=== PATIENT | female | born 1975 | race Caucasian/White ===

== ENCOUNTER → 2016-07-24 | Outpatient (CLI) | payer MEDICARE, MEDICAID ==
[~2016-07-24] MED LIST: CLON2TAB3 PO; CMBV14.7IN IH; CYCL10TA9 PO; DRON5CAP PO; ESTR0.5T PO; ESTR1PAT31 TD; FAMO40TA6 PO; FESO4TAB2 PO; HYDR1TAB8 PO; HYDR1TAB86 PO; IBUP-1773 PO; INSASP10V SC; INSU100V6 SC; LEVO100T46 PO; LEVO75TA57 PO; LISI10TA2 PO; LOVA40TA2 PO; MAG OXIDE PO; METO10TA3 PO; MORP30CP12 PO; MULT-501 PO; NF-OLOP5ML OU; ONDA-41 PO; ONDA4VIA IM; OXYC15TA79 PO; POLY17PO23 PO; PRM50SU RC; PROMETHAZINE 50 MG/ML IM; PROMETHAZINE GEL TOP; SLMFT1E INH; VIVELLE DOT 0.1 MG TD; ZINC PO; [UNRECOGNIZED DRUG - CODE] RC; [UNRECOGNIZED DRUG - OTHER] TOP
--- NOTE | 2016-07-25 13:47 | Diagnostic Imaging Report ---
Bilateral screening mammogram. The current study was also evaluated with a Computer Aided Detection (CAD) system. INDICATION: Screening. No current complaints stated on the questionnaire. COMPARISON: 07/21/15. FINDINGS: The breasts are composed of scattered fibroglandular densities. There are scattered benign-appearing calcifications. Allowing for technique and positional differences, no suspicious change is seen. IMPRESSION: No significant change. ACR BI-RADS Category 2: Benign findings. Result letter will be mailed to the patient. Note: At least 10% of breast cancer is not imaged by mammography. Dictated by: Dictated on workstation # [id number]
== END ==
LOC: RAD 13:44
PROVIDERS: ATTEND Obstetrics & Gynecology
DX: Z12.31 Encounter for screening mammogram for malignant neoplasm of breast (principal)
CPT/HCPCS: 77067

== ENCOUNTER → 2017-08-20 | Outpatient (CLI) | payer MEDICARE, MEDICAID ==
--- NOTE | 2017-08-21 09:58 | Diagnostic Imaging Report ---
INDICATION: Routine screening. COMPARISON: 07/24/2016 and 07/21/2015. TECHNIQUE: 2D and 3D bilateral screening mammography was performed with CAD. FINDINGS: Scattered fibroglandular densities are identified bilaterally. There are benign calcifications bilaterally. No mass or malignant appearing microcalcifications are seen. A port in the right chest is noted. The axillae are otherwise unremarkable. IMPRESSION: No mammographic features suspicious for malignancy are identified. ACR BI-RADS Category 2: Benign findings. Result letter will be mailed to the patient. Note: At least 10% of breast cancer is not imaged by mammography. Dictated by: Dictated on workstation # [id number]
== END ==
LOC: RAD 12:55
PROVIDERS: ATTEND Obstetrics & Gynecology
DX: Z12.31 Encounter for screening mammogram for malignant neoplasm of breast (principal)
CPT/HCPCS: 77067

== ENCOUNTER → 2018-09-30 | Outpatient (CLI) | payer MEDICARE, MEDICAID ==
--- NOTE | 2018-09-30 10:38 | Diagnostic Imaging Report ---
INDICATION: Screening for osteoporosis. COMPARISON: None FINDINGS: The bone mineral density of the hips was measured. The patient has had a prior fusion of the lumbar spine. The total T score for the left hip is 2.1 and for the right hip 1.5. The T score for each femoral neck is 1.2. All of these values are within normal limits. AP Spine L1-L4: [BMD (g/cm2): N/A] [T-Score: N/A] [Z-Score: N/A] [BMD Previous: N/A] [BMD % Change: N/A] LT Hip Neck: [BMD (g/cm2): 1.207] [T-Score: 1.2] [Z-Score: 1.5] LT Hip Total: [BMD (g/cm2):1.270] [T-Score:2.1] [Z-Score: 2.1] [BMD Previous: N/A] [BMD % Change: N/A] RT Hip Neck: [BMD (g/cm2):1.210] [T-Score:1.2] [Z-Score:1.5] RT Hip Total: [BMD (g/cm2):1.193] [T-score:1.5] [Z-Score:1.4] [BMD Previous:N/A] [BMD % Change:N/A] *Indicates significant change from prior examination based on 95% confidence level. World Health Organization criteria for BMD interpretation classify patients as Normal (T-score at or above -1.0), Osteopenic (T-score between -1.0 and -2.5) or Osteoporotic (T-score at or below -2.5). LIMITATIONS AND MODIFICATION: None. FRACTURE RISK (FRAX SCORE): The ten year probability of (%): Major Osteoporotic Fracture: [N/A] Hip Fracture: [N/A] IMPRESSION: 1. The bone mineral density of the hips and femoral necks is within normal limits. 2. The bone density spine could not be determined due to the patient's prior lumbar fusion. 3. See below National Osteoporosis Foundation guidelines on when to potentially initiate pharmacologic therapy. Based on the National Osteoporosis Foundation Guidelines, pharmacologic treatment should be initiated in any of the following, unless clinical conditions suggest otherwise: * Any patient with prior fragility fracture of the hip or vertebrae. A spine fracture indicates 5X risk for subsequent spine fracture and 2X risk for subsequent hip fracture. * Osteoporosis (T-score <-2.5). * Postmenopausal women and men age 50 and older with low bone mass/osteopenia (T-score between -1.0 and -2.5) by DXA and 10-year major osteoporotic fracture greater than 20% or a 10-year probability of hip fracture greater than 3%. These fracture risks are supplied above in the FRAX score, if applicable. * Clinician judgement and/or patient preferences may indicate treatment for people with 10-year fracture probabilities above or below these levels. Dictated by: Dictated on workstation # [id number]
== END ==
LOC: RAD 09:40
PROVIDERS: ATTEND Nurse Practitioner Family
DX: Z13.820 Encounter for screening for osteoporosis (principal); Z12.39 Encounter for other screening for malignant neoplasm of breast; E89.40 Asymptomatic postprocedural ovarian failure
CPT/HCPCS: 77080

== ENCOUNTER 2018-12-19 13:02 | Outpatient (RCR) | payer MEDICARE, MEDICAID ==
[2018-12-12 14:05] VITALS: BP 132/86
[2018-12-12] MEDS: FERRIC CARBOXYMALTOSE INJ 750 MG in NS (IVPB) 250 ML IV SCH (14:33)
[~2018-12-19] VITALS: Ht 162.6 cm; Wt 80.9 kg
[2018-12-19 12:57] VITALS: BP 115/89
[~2018-12-19 13:02] MED LIST changes: +ONDANSETRON 4 MG/2 ML (SDV) Z0FRAN IV PRN
[2018-12-19] MEDS: FERRIC CARBOXYMALTOSE INJ 750 MG in NS (IVPB) 250 ML IV SCH (13:10)
[2018-12-19] MEDS ORDERED: HEParin (CENTRAL IV FLUSH) 500 UNIT/5 ML SYR IV ONE (13:15)
[2018-12-19] MEDS ORDERED: CATHETER FLUSH 10 ML SYR IV PRN (13:15)
== END 2018-12-19 13:40 | disposition home or self-care (01) ==
LOC: SDC 13:02
PROVIDERS: ATTEND Nurse Practitioner Family
DX: D50.9 Iron deficiency anemia, unspecified (principal); K31.84 Gastroparesis; R11.2 Nausea with vomiting, unspecified
CPT/HCPCS: 96365

== ENCOUNTER → 2019-11-05 | Outpatient (CLI) | payer MEDICARE, MEDICAID ==
[~2019-11-05] MED LIST changes: -ONDANSETRON 4 MG/2 ML (SDV) Z0FRAN IV PRN
--- NOTE | 2019-11-06 12:39 | Diagnostic Imaging Report ---
INDICATION: Routine screening. Comparison is made with prior mammogram 09/30/2018 and 08/20/2017. 2-D and 3-D bilateral screening mammography was performed with CAD. Scattered fibroglandular densities are identified bilaterally. There are benign calcifications in both breasts. No mass or malignant appearing microcalcifications are seen. Axillae are unremarkable. IMPRESSION: BI-RADS Category 2 No mammographic features suspicious for malignancy are identified. ACR BI-RADS Category 2: Benign findings. Result letter will be mailed to the patient. Note: At least 10% of breast cancer is not imaged by mammography. Dictated by: Dictated on workstation # [id number]
== END ==
LOC: RAD 15:00
PROVIDERS: ATTEND Nurse Practitioner Family
DX: Z12.31 Encounter for screening mammogram for malignant neoplasm of breast (principal)
CPT/HCPCS: 77063; 77067

== ENCOUNTER 2021-06-20 12:56 | Outpatient (RCR) | payer MEDICARE, MEDICAID ==
[2021-06-13] MEDS: FERRIC CARBOXYMALTOSE INJ 750 MG in NS (IVPB) 250 ML IV SCH (13:19)
[2021-06-13 13:40] VITALS: BP 143/89
[2021-06-20] MEDS: FERRIC CARBOXYMALTOSE INJ 750 MG in NS (IVPB) 250 ML IV SCH (13:18)
[2021-06-20 13:21] VITALS: BP 144/86
== END 2021-07-08 | disposition home or self-care (01) ==
LOC: SDC 12:56
PROVIDERS: ATTEND Nurse Practitioner Family
DX: D50.9 Iron deficiency anemia, unspecified (principal)
CPT/HCPCS: 96365